=== PATIENT | male | born 1960 | race Caucasian/White ===

== ENCOUNTER 2018-03-30 07:31 | Day surgery (SDC) | payer OTHER ==
[~2018-03-30] VITALS: Ht 185.4 cm; Wt 106.7 kg
[~2018-03-30 07:31] MED LIST: ALLO100; Ambien10 MG PO; Augmentin 875-1 EACH PO; CEPH500; CEPH500 PO; CITA20 PO; CYCL10; Celexa40 MG; Cyclobenzaprine5 MG PO; DIAZ5 PO; DICL75ER; DIPH50 PO; HYDACE10B; HYDACE5 PO; IBUP400 PO; IBUP800; MEDICAL MARIJUANA; Norco 5-325 Ta1 EACH PO; OXYACE5T PO; PANT40; PRED10 PO; TIZANIDINE HCL2 MG
== END 2018-03-30 12:40 | disposition home or self-care (01) ==
LOC: ORSCSDS 07:31
PROVIDERS: Orthopaedic Surgery
PROC: 0RHJ44Z Insertion of Internal Fixation Device into Right Shoulder Joint, Percutaneous Endoscopic Approach (ICD-10-PCS; principal; 2018-03-30 09:00)
PROC: 0LS14ZZ Reposition Right Shoulder Tendon, Percutaneous Endoscopic Approach (ICD-10-PCS; principal; 2018-03-30 09:00)
PROC: 0LQ14ZZ Repair Right Shoulder Tendon, Percutaneous Endoscopic Approach (ICD-10-PCS; principal; 2018-03-30 09:00)
PROC: 0RNJ4ZZ Release Right Shoulder Joint, Percutaneous Endoscopic Approach (ICD-10-PCS; principal; 2018-03-30 09:00)
DX: M75.111 Incomplete rotator cuff tear or rupture of right shoulder, not specified as traumatic (principal); M75.21 Bicipital tendinitis, right shoulder; M75.41 Impingement syndrome of right shoulder; S43.431A Superior glenoid labrum lesion of right shoulder, initial encounter; F17.210 Nicotine dependence, cigarettes, uncomplicated; Z79.899 Other long term (current) drug therapy
CPT/HCPCS: C1713; J0171; J0330; J0690; J2250; J3010; J7120